=== PATIENT | female | born 1985 | race Caucasian/White ===

== ENCOUNTER 2016-09-30 23:07 | Observation (INO) | payer MEDICAID ==
[~2016-09-30] VITALS: Ht 144.8 cm; Wt 71.4 kg
[~2016-09-30 23:07] MED LIST: CEPH500 PO; CEPH500C3 PO; IBUP600 PO; MACR100C PO; OXYC1SOL5 PO; PERI8.6T PO; PREN0.01 PO; ZOFR4TAB3 PO
[2016-09-30 23:11] VITALS: BP 154/87; PULSE 64; RESP 18; TEMP 97.8; O2SAT 100
[2016-10-01] VITALS (7 sets, daily range): BP systolic 119–137; BP diastolic 75–86; PULSE 63–81; RESP 16–18; TEMP 97–98.5; O2SAT 97–99
[2016-10-01] MEDS ORDERED: SODIUM CHLOR 0.9% 1000 ML INJ 1,000 ML IV SCH (03:31)
[2016-10-01] MEDS ORDERED: SODIUM CHLORIDE 0.9% FLUSH 5 ML FLUSH IVF PRN ×2 (03:45→07:15)
[2016-10-01] MEDS ORDERED: HYDROmorphone HCL PF 1 MG/ML VIAL IV PUSH ONE (03:45)
[2016-10-01] MEDS ORDERED: ONDANSETRON HCL 4 MG/2 ML VIAL IVP ONE (03:45)
[2016-10-01 04:09] LABS: AUTOMATED NEUTROPHIL # 3.7 TH/MM3 (1.8-7.7); BASOPHIL # 0.1 TH/MM3 (0-0.2); BASOPHIL % 0.8 % (0.0-2.0); EOSINOPHIL # 0.2 TH/MM3 (0-0.4); HEMATOCRIT 34.2 % (35.0-46.0); HEMO FLAGS DIFF FINAL; LYMPH % 41.5 % (9.0-44.0); MEAN CELL VOLUME 89.6 FL (80.0-100.0); MEAN CORPUSCULAR HEMOGLOBIN 31.5 PG (27.0-34.0); MEAN CORPUSCULAR HGB CONC 35.1 % (32.0-36.0); MONO % 3.4 % (0.0-8.0); NEUT % 51.3 % (16.0-70.0); PLATELET COUNT 440 TH/MM3 (150-450); RED BLOOD COUNT 3.82 MIL/MM3 (4.00-5.30); WHITE BLOOD COUNT 7.3 TH/MM3 (4.0-11.0)
[2016-10-01 04:13] LABS: BLOOD, URINE NEG (NEG); COMMENT (UR) CULT NOT INDICATED; CULTURE IF INDICATED CULT NOT INDICATED; GLUCOSE,URINE NEG (NEG); KETONE, URINE NEG (NEG); MUCUS URINE FEW /lpf (OCC); NITRITE,URINE NEG (NEG); PH, URINE 6.5 (5.0-8.5); SQUAMOUS EPITHELIAL CELL URINE 4 /hpf (0-5); URINE COLOR YELLOW (YELLW/STRAW)
[2016-10-01 04:36] LABS: ALKALINE PHOSPHATASE 129 U/L (45-117); ALT (GPT) 74 U/L (10-53); ANION GAP 9 MEQ/L (5-15); AST (GOT) 47 U/L (15-37); BICARBONATE 25.3 MEQ/L (21.0-32.0); BLOOD UREA NITROGEN 12 MG/DL (7-18); CHLORIDE 105 MEQ/L (98-107); GLOMERULAR FILTRATION RATE 83 ML/MIN (>89); POTASSIUM 3.8 MEQ/L (3.5-5.1); SODIUM (NA) 139 MEQ/L (136-145); TOTAL BILIRUBIN ADULT 0.3 MG/DL (0.2-1.0)
[2016-10-01] MEDS ORDERED: IOHEXOL 350 MG/ML 10 ML VIAL (for RAD DIAG) IV ONE (05:21)
--- NOTE | 2016-10-01 05:59 | RADRPT ---
EXAM DATE/TIME: 10/01/2016 05:18 [place] COMPARISON: No previous studies available for comparison. INDICATIONS : Diffuse abdomen pain past 24 hours. IV CONTRAST: 94 cc Omnipaque 350 (iohexol) IV ORAL CONTRAST: Prescribed oral contrast ingested. RADIATION DOSE: 7.54 CTDIvol (mGy) MEDICAL HISTORY : None SURGICAL HISTORY : section. ENCOUNTER: Initial ACUITY: 1 day PAIN SCALE: 10/10 LOCATION: Bilateral abdomen TECHNIQUE: Volumetric scanning of the abdomen and pelvis was performed. Using automated exposure control and ad justment of the mA and/or kV according to patient size, radiation dose was kept as low as reasonably achievable to obtain optimal diagnostic quality images. FINDINGS: LOWER LUNGS: The visualized lower lungs are clear. LIVER: The liver is diffusely low in attenuation. There is relative fatty sparing adjacent to the gallbladde r fossa. The gallbladder contains calcified stones. The gallbladder wall is thick walled. A small dotty unt of pericholecystic fluid noted. No dilatation of the ductal system. Portal vein remains patent. SPLEEN: Normal size without lesion. PANCREAS: Within normal limits. KIDNEYS: Normal in size and shape. There is no mass, stone or hydronephrosis. ADRENAL GLANDS: Within normal limits. VASCULAR: There is no aortic aneurysm. BOWEL/MESENTERY: The stomach, small bowel, and colon demonstrate no acute abnormality. There is no free intraperitone al air or fluid. ABDOMINAL WALL: Umbilical hernia containing omental fat is noted. RETROPERITONEUM: There is no lymphadenopathy. BLADDER: No wall thickening or mass. REPRODUCTIVE: Within normal limits. INGUINAL: There is no lymphadenopathy or hernia. MUSCULOSKELETAL: Within normal limits for patient age. CONCLUSION: Acute cholecystitis. No biliary dilatation. Hector Curtis Jr., MD on October 01, 2016 at 5:55 Board Certified Radiologist. This report was verified electronically.
--- NOTE | 2016-10-01 06:50 | PD ---
HPI Chief Complaint: Abdominal Pain Time Seen by Provider: 03:31 Travel History International Travel<30 days: No Contact w/Intl Traveler<30days: No Traveled to known affect area: No History of Present Illness HPI 30-year-old female presents to the emergency department by private transportation for complaint of nausea and epigastric abdominal pain. Pain is persistent and unremitting. Pain radiates to the right upper quadrant. Patient does not own any chest pain or referred back pain. Patient denies any vomiting. No fever or chills. No prior history of gallbladder disease peptic ulcer disease pancreatitis colitis or diverticulitis. No previous abdominal surgery; other than times for C-sections. Patient rates pain as 10 over 10 in intensity. Patient denies any dysuria frequency urgency. Patient's had no recent respiratory illness. PFSH Past Medical History Narrative Medical Negative past medical history; LMP 09/23/16 Ab1 4 no tobacco use nursing notes reviewed Medical History: Denies Significant Hx Cardiovascular Problems: No Diminished Hearing: No Endocrine: No Respiratory: No Immunizations Current: Yes ?: Not LMP: 09-23-16 : 5 Para: 4 Miscarriage: 1 Past Surgical History Section: Yes (X4) Other Surgery: Yes () Social History Alcohol Use: No Tobacco Use: No Substance Use: No Allergies-Medications (Allergen,Severity, Reaction): Coded Allergies: No Known Allergies (Verified , 09/30/16) Reported Meds & Prescriptions Reported Meds & Active Scripts Active Review of Systems Except as stated in HPI: all other systems reviewed are Neg General / Constitutional: No: Fever HENT: No: Congestion Cardiovascular: No: Chest Pain or Discomfort Respiratory: No: Shortness of Breath Gastrointestinal: Positive: Nausea, Abdominal Pain Genitourinary: No: Dysuria, Flank Pain Musculoskeletal: No: Myalgias, Arthralgias Skin: No Rash Neurologic: No: Weakness Hematologic/Lymphatic: No: Lymph Node Enlargement Physical Exam Narrative GENERAL: Well developed well-nourished female in no acute distress no respiratory distress SKIN: Warm and dry. HEAD: Normocephalic. EYES: No scleral icterus. No injection or drainage. NECK: Supple, trachea midline. No JVD or lymphadenopathy. CARDIOVASCULAR: Regular rate and rhythm without murmurs, gallops, or rubs. RESPIRATORY: Breath sounds equal bilaterally. No accessory muscle use. GASTROINTESTINAL: Abdomen soft, reproducible epigastric tenderness with reproducible positive clinical Doran sign to the right upper quadrant, nondistended. MUSCULOSKELETAL: No cyanosis, or edema. BACK: Nontender without obvious deformity. No CVA tenderness. Data Data Last Documented VS Vital Signs Date Time Temp Pulse Resp B/P Pulse Ox O2 Delivery O2 Flow Rate FiO2 10/01/16 03:05 98.1 63 18 122/77 99 Room Air Orders Complete Blood Count With Diff (10/01/16 03:31) Comprehensive Metabolic Panel (10/01/16 03:31) Lipase (10/01/16 03:31) Urinalysis - C+S If Indicated (10/01/16 03:31) Ct Abd/Pel W Iv Contrast(Rout) (10/01/16 03:31) Iv Access Insert/Monitor (10/01/16 03:31) Ecg Monitoring (10/01/16 03:31) Oximetry (10/01/16 03:31) Ondansetron Inj (Zofran Inj) (10/01/16 03:45) Sodium Chlor 0.9% 1000 Ml Inj (Ns 1000 M (10/01/16 03:31) Sodium Chloride 0.9% Flush (Ns Flush) (10/01/16 03:45) Ed Urine Pregnancytest Poc (10/01/16 03:31) Hydromorphone Pf Inj (Dilaudid Pf Inj) (10/01/16 03:45) Iohexol 350 Inj (Omnipaque 350 Inj) (10/01/16 05:21) Metronidazole 500 Mg Inj (Flagyl 500 Mg (10/01/16 07:00) Ciprofloxacin 400 Mg Premix (Cipro 400 M (10/01/16 07:00) NPO (10/01/16 06:51) Admit Order (Ed Use Only) (10/01/16 ) ^ Saline Lock (10/01/16 07:14) Resp Oxygen Jordan C Titrat 1-4 L (10/01/16 ) ^ Notify Dr: Other (10/01/16 07:14) Sodium Chloride 0.9% Flush (Ns Flush) (10/01/16 09:00) Sodium Chloride 0.9% Flush (Ns Flush) (10/01/16 07:15) Labs Laboratory Tests Test 10/01/16 03:48 White Blood Count 7.3 TH/MM3 Red Blood Count 3.82 MIL/MM3 Hemoglobin 12.0 GM/DL Hematocrit 34.2 % Mean Corpuscular Volume 89.6 FL Mean Corpuscular Hemoglobin 31.5 PG Mean Corpuscular Hemoglobin 35.1 % Concent Red Cell Distribution Width 14.0 % Platelet Count 440 TH/MM3 Mean Platelet Volume 7.4 FL Neutrophils (%) (Auto) 51.3 % Lymphocytes (%) (Auto) 41.5 % Monocytes (%) (Auto) 3.4 % Eosinophils (%) (Auto) 3.0 % Basophils (%) (Auto) 0.8 % Neutrophils # (Auto) 3.7 TH/MM3 Lymphocytes # (Auto) 3.0 TH/MM3 Monocytes # (Auto) 0.2 TH/MM3 Eosinophils # (Auto) 0.2 TH/MM3 Basophils # (Auto) 0.1 TH/MM3 CBC Comment DIFF FINAL Differential Comment Urine Color YELLOW Urine Turbidity HAZY Urine pH 6.5 Urine Specific Turney 1.021 Urine Protein TRACE mg/dL Urine Glucose (UA) NEG mg/dL Urine Ketones NEG mg/dL Urine Occult Blood NEG Urine Nitrite NEG Urine Bilirubin NEG Urine Urobilinogen LESS THAN 2.0 MG/DL Urine Leukocyte Esterase NEG Urine RBC LESS THAN 1 /hpf Urine WBC 2 /hpf Urine Squamous Epithelial 4 /hpf Cells Urine Mucus FEW /lpf Microscopic Urinalysis Comment CULT NOT INDICATED Sodium Level 139 MEQ/L Potassium Level 3.8 MEQ/L Chloride Level 105 MEQ/L Carbon Dioxide Level 25.3 MEQ/L Anion Gap 9 MEQ/L Blood Urea Nitrogen 12 MG/DL Creatinine 0.81 MG/DL Estimat Glomerular Filtration 83 ML/MIN Rate Random Glucose 101 MG/DL Calcium Level 8.3 MG/DL Total Bilirubin 0.3 MG/DL Aspartate Amino Transf 47 U/L (AST/SGOT) Alanine Aminotransferase 74 U/L (ALT/SGPT) Alkaline Phosphatase 129 U/L Total Protein 7.2 GM/DL Albumin 3.3 GM/DL Lipase 263 U/L [facility] Medical Decision Making Medical Screen Exam Complete: Yes Emergency Medical Condition: Yes Medical Record Reviewed: Yes Interpretation(s) ct abd/pel: CONCLUSION: 1. No acute abnormality. In particular, no CT evidence to suggest splenic infarction on this unenhanced study. 2. Tiny bilateral pleural effusions and right basilar atelectasis. 3. Endplate changes involve the lumbar spine consistent with the history of sickle cell disease. Hector Curtis Jr., MD on October 01, 2016 at 5:57 Board Certified Radiologist. This report was verified electronically. Differential Diagnosis Abdominal pain, cholecystitis, biliary colic, peptic ulcer disease, esophageal spasm, atypical appendicitis, pneumonia, Narrative Course Patient administered Zofran and Dilaudid for pain IV maintenance fluids and kept nothing by mouth CT abdomen and pelvis ordered for evaluation of abdomen and suspicion of acute cholecystitis Total white cell count is normal with normal automated differential complete metabolic panel is remarkable remarkable for normal total bilirubin with mild elevation of transaminases urinalysis is normal and [id number] hCG is negative CT abdomen and pelvis is consistent with acute cholecystitis Patient's case was discussed with on-call general surgeon Physician Communication Physician Communication Call placed to Dr. Carpenter --- will admit to plan cholecystectomy Diagnosis Primary Impression: Acute cholecystitis Admitting Information Admitting Physician Requests: Observation Alexandra Mendiola MD Oct 01, 2016 06:50
[2016-10-01] MEDS ORDERED: metroNIDAZOLE 500 MG INJ 100 ML IV ONE (07:00)
[2016-10-01] MEDS ORDERED: CIPROFLOXACIN 400 MG PREMIX 200 ML IV ONE (07:00)
[2016-10-01] MEDS ORDERED: ceFAZolin 2 GM PREMIX 50 ML IV SCH (08:00)
[2016-10-01] MEDS ORDERED: SODIUM CHLORIDE 0.9% FLUSH 5 ML FLUSH IVF SCH (09:00)
[2016-10-01] MEDS ORDERED: NEOSTIGMINE 3 MG/3 ML SYR IV ONE (09:24)
[2016-10-01] MEDS ORDERED: PROPOFOL 200 MG/20 ML AMP IV ONE (09:24)
[2016-10-01] MEDS ORDERED: KETOROLAC TROMETHAMINE 60 MG/2 ML (IM) VIAL IM ONE (09:25)
[2016-10-01] MEDS ORDERED: ONDANSETRON HCL 4 MG/2 ML VIAL IV PUSH ONE (09:25)
[2016-10-01] MEDS ORDERED: PHENYLEPH/NS 1000 MCG/10 ML SYR IV ONE (09:25)
[2016-10-01] MEDS ORDERED: LACTATED RINGER'S 1000 ML INJ 1,000 ML IV ONE (09:25)
[2016-10-01] MEDS ORDERED: FAMOTIDINE 20 MG/2 ML VIAL ONE (10:18)
[2016-10-01] MEDS ORDERED: MIDAZOLAM HCL 2 MG/2 ML VIAL ONE (10:18)
[2016-10-01] MEDS ORDERED: DEXAMETHASONE SOD PHOS 4 MG/ML VIAL ONE (10:19)
[2016-10-01] MEDS ORDERED: BUPIVACAINE/EPINEPHRINE 0.25% PF 30 ML VIAL ONE (10:34)
--- NOTE | 2016-10-01 10:42 | MH ---
cc: MAGY CARPENTER M.D. DATE OF ADMISSION 10/01/2016 REASON FOR ADMISSION Right upper quadrant pain, nausea, cholelithiasis, cholecystitis HISTORY This is a 30-year-old female who had a one day history of right upper quadrant pain, and nausea. She was brought to the emergency room by her family. ER physician, Dr. Mendiola, evaluated her with imaging and exam and determined that she had possible biliary colic type symptoms and asked me to take over her care. The patient complains and her history is taken from her sister who speaks [place]utanese as the patient speaks [place]. She complains of pain of 10/10 right upper quadrant. She had nausea. Pain is in the epigastric region radiating over the right upper quadrant. PAST HISTORY Significant for: 1. C-sections in the past 2. She has had five pregnancies, one miscarriage, four deliveries via 3. She had a tubal ligation. MEDICATIONS No medications. ALLERGIES No allergies. REVIEW OF SYSTEMS No cardiac or pulmonary issues. No endocrine issues. Review of systems as above. PHYSICAL EXAM She is a well-nourished female in minimal distress. NECK: Supple. CHEST: Clear. HEART: Regular rate. ABDOMEN: Slightly obese and soft with exquisite tenderness at the mid epigastric, right upper quadrant region radiating to the back. She has surgical scars from the . No masses are appreciated. Patient has a umbilical hernia EXTREMITIES: Moves all extremities well. No clubbing, cyanosis or edema. NEUROLOGIC: She is alert and oriented, seems to understand the conversation with her sister as an circuit court judge. LABORATORY DATA She had a white count of 7, H&H of 12 and 34. Chemistry is normal, slight elevation of her liver enzymes with an AST of 47, ALT of 74, alk phos 124, total bilirubin 0.3, lipase 263. IMAGING STUDIES CT abdomen and pelvis showing acute cholecystitis. No biliary dilatation. There is fluid around the gallbladder. The gallbladder is thick. ASSESSMENT Biliary colic with acute cholecystitis, cholelithiasis, abdominal pain. Patient has umbilical hernia which will be repaired at the same setting PLAN Laparoscopic cholecystectomy. I will rearrange my schedule to accommodate her care to proceed with a cholecystectomy today. Hopefully the OR has time. Magy Carpenter MD JAYSMIN/DJL /10:22 AM /10:32 AM MTDMagy
--- NOTE | 2016-10-01 12:10 | HHI.PR ---
cc: Damián Carpenter MD Immediate Post Op Note Procedure Date: Oct 01, 2016 Pre Op Diagnosis: (1) delivery delivered (2) Acute cholecystitis (3) History of bilateral tubal ligation Post Op Diagnosis: (1) Acute cholecystitis (2) Umbilical hernia Surgeon: Damián Carpenter Scientific Software Developer(s): Oscar La Butler advancement registered nurse practitioner The PHILATELIC CONSULTANT was present from beginning to the end of the case assisting in all portions of the procedure. It was necessary to have this individual in the room to assist in the above surgical procedure. The surgical procedure was assisted by the PHILATELIC CONSULTANT. The PHILATELIC CONSULTANT presence was necessary throughout the case for appropriate retraction, dissection, visualization, and resection of the important anatomical structures during the surgical procedure. The PHILATELIC CONSULTANT was assisting throughout the entirety of the operation. The skill set of the PHILATELIC CONSULTANT is medically and surgically necessary to safely complete the surgical procedure. During the surgical case, the operating room surgical physician assistant was working instrument table and passing instruments to the attending surgeon and PHILATELIC CONSULTANT. The PHILATELIC CONSULTANT was directly assisting the operating surgeon and involved in the technical aspects of the surgical case. Procedure: Laparoscopic cholecystectomy Repair of umbilical hernia Findings: Severely inflamed gallbladder large stone impacted in the neck of the gallbladder Specimen(s) removed: Gallbladder Estimated blood loss: Minimal Anesthesia: General Drains: None IVF Patient to: PACU Patient Condition: Good Implant/Devices: SEE IMPLANT LOG (if applicable) Date/Time of Procedure: SEE SURGICAL CARE RECORD Damián Carpenter MD Oct 01, 2016 12:10
[2016-10-01] MEDS ORDERED: NORC5TAB PO (12:12)
[2016-10-01] MEDS ORDERED: fentaNYL CITRATE 250 MCG/5 ML AMP ONE (12:37)
[2016-10-01] MEDS ORDERED: DO NOT ADM ANY ANTICOAGULANT DRUGS XX PRN (12:45)
--- NOTE | 2016-10-01 12:46 | MP ---
cc: MAGY CARPENTER M.D. DATE OF SURGERY 10/01/2016 PREOPERATIVE DIAGNOSIS Cholelithiasis, cholecystitis. POSTOPERATIVE DIAGNOSES 1. Gangrenous cholelithiasis, cholecystitis. 2. Umbilical hernia. PROCEDURES 1. Laparoscopic cholecystectomy. 2. Repair of umbilical hernia. ANESTHESIA General. SURGEON Dr. Carpenter. UNIT TRUST MANAGER Ms. La Butler, advanced nurse practitioner. The INVESTMENT OFFICER was present from beginning to the end of the case assisting in all portions of the procedure. It was necessary to have this individual in the room to assist in the above surgical procedure. The surgical procedure was assisted by the INVESTMENT OFFICER. The INVESTMENT OFFICER presence was necessary throughout the case for appropriate retraction, dissection, visualization, and resection of the important anatomical structures during the surgical procedure. The INVESTMENT OFFICER was assisting throughout the entirety of the operation. The skill set of the INVESTMENT OFFICER is medically and surgically necessary to safely complete the surgical procedure. During the surgical case, the operating room surgical asst was working instrument table and passing instruments to the attending surgeon and INVESTMENT OFFICER. The INVESTMENT OFFICER was directly assisting the operating surgeon and involved in the technical aspects of the surgical case. ANESTHESIA General. INDICATIONS This is a 30-year-old female who had signs and symptoms consistent with biliary colic, cholelithiasis, cholecystitis. Plans were made for above. She also had an umbilical hernia. PROCEDURE The patient was taken to the operating room and placed in supine position. After anesthesia her abdomen was prepped with Betadine. We noted an umbilical hernia when prepping. We draped the patient. She is given preoperative antibiotics. We make a curvilinear incision just below the umbilicus. The hernia sac is identified and entered. Omentum is reduced that had been incarcerated. We then placed a balloon trocar through the hernia. The abdomen is insufflated to 15 mmHg. Three other working ports are placed, a 5 mm at the xiphoid, a 5-mm in the midline between the two previously placed ports and a third working port in the right upper quadrant. The gallbladder was grasped superiorly and laterally, is very thickened and edematous and at the neck of the gallbladder is a large stone impacted right at the cystic duct. We are able to dissect around this and identify the cystic duct; it is very short. We doubly ligated and transected the cystic artery; it is very small, associated with the large Calot node. This is doubly ligated with hemoclips. The gallbladder is then teased off the gallbladder bed with minimal bleeding, placed in EndoCatch and pulled out through the umbilical incision which must be elongated because of the size of the stone. We then replaced our trocars, irrigate copiously. Hemostasis assured. We can see the cystic duct, cystic artery remnant; they are both hemostatic and without biliary leakage. No other gross abnormality is seen. The liver and peritoneal surfaces are smooth. We then remove the trocars after the irrigating solution is removed. The umbilical hernia is then repaired with 0 Ethibond in interrupted fashion. We repair this in a vertical fashion and then the skin at all four sites was closed with a 4-0 Vicryl. Steri-Strips applied, sterile bandage applied. The patient tolerated the procedure well, had no immediate postop complication. MD TUYET Elizondo/BIBI /12:02 PM /12:39 PM CHRISTINE
[2016-10-01] MEDS ORDERED: ACETAMINOPHEN/HYDROcodone 325 MG/5 MG TAB PO PRN (16:30)
== END 2016-10-01 16:58 | disposition home or self-care (01) ==
LOC: NEPC 23:07 → NEDA 10-01 07:15 → N07B 10-01 09:27
PROVIDERS: ADMIT Surgery; ATTEND Surgery
DX: K80.10 Calculus of gallbladder with chronic cholecystitis without obstruction (principal); K42.9 Umbilical hernia without obstruction or gangrene
CPT/HCPCS: 00750; 00790; 47562; 49585; 74177; 80053; 81001; 83690; 84703; 85025; 88304; 96374; 96375; 99285; G0378; J0690; J0744; J1100; J1170; J1885; J2250; J2370; J2405; J2710; J3010; J7030; J7120; Q9967